=== PATIENT | male | born 1965 | race Caucasian/White ===

== ENCOUNTER → 2016-05-11 | Day surgery (SDC) | payer BC ==
[2016-05-04 14:36] VITALS: BMI 26.0
[~2016-05-11] VITALS: Ht 180.3 cm; Wt 86.4 kg
[~2016-05-11] MED LIST: ASPCH81X PO; BIOT1CAP8 PO; CHOL1000 PO; FLUT0.15 NAE; LIDOCAINE HCL 2% 2 ML VIAL (20MG/ML) ONE; LORA-741 PO; MIDAZOLAM HCL 1 MG/ML 2ML VIAL ONE; MULT-506 PO; ONDA4TAB46 PO; PARO10TA4 PO; PROPOFOL IV EMULSION 10 MG/ML 20 ML VIAL IV ONE; PRVHFAIN INH; SENN-61 PO; SODIUM CHLORIDE 0.9% 500ML 500 ML IV ONE; TEMA30CA4 PO; TRAM-10 PO
[2016-05-11 12:59] VITALS: TEMP 36.9
[2016-05-11 13:00] VITALS: Ht 180.3 cm; Wt 86.4 kg
--- NOTE | 2016-05-11 13:45 | GI REPORT ---
Procedure Date: 05/11/2016 12:58 PM Procedure: Colonoscopy Indications: Surveillance: Personal history of adenomatous polyps on last colonoscopy 5 years ago Medicines: Propofol per Anesthesia Complications: No immediate complications. Estimated blood loss: None. Estimated Blood Loss: Estimated blood loss: none. Procedure: Pre-Anesthesia Assessment: - Prior to the procedure, a History and Physical was performed, and patient medications, allergies and sensitivities were reviewed. The patient's tolerance of previous anesthesia was reviewed. - The risks and benefits of the procedure and the sedation options and risks were discussed with the patient. All questions were answered and informed consent was obtained. - Patient identification and proposed procedure were verified prior to the procedure by the physician and the nurse. The procedure was verified in the pre-procedure area in the procedure room. - Mental Status Examination: alert and oriented. Airway Examination: normal oropharyngeal airway and neck mobility. Respiratory Examination: clear to auscultation. CV Examination: normal. Abdominal Examination: bowel sounds present, abdomen soft and non-tender, no masses or organomegaly noted. - ASA Grade Assessment: II - A patient with mild systemic disease. After I obtained informed consent, the scope was passed under direct vision. Throughout the procedure, the patient's blood pressure, pulse, and oxygen saturations were monitored continuously. The scope was introduced through the anus and advanced to the terminal ileum. The colonoscopy was performed without difficulty. The patient tolerated the procedure well. The quality of the bowel preparation was good. Findings: The perianal and digital rectal examinations were normal. Pertinent negatives include normal sphincter tone and no palpable rectal lesions. The terminal ileum appeared normal. The entire examined colon appeared normal on direct and retroflexion views. Impression: - The examined portion of the ileum was normal. - The entire examined colon is normal on direct and retroflexion views. - No specimens collected. Recommendation: - Repeat colonoscopy in 5 years for surveillance. - Return to referring physician as previously scheduled. - Discharge patient to home. Isabel Reeves D.O. Isabel Reeves DO 05/11/2016 1:45:19 PM This report has been signed electronically. Note Initiated On: 05/11/2016 12:58 PM I attest to the content of the Intraoperative Record and orders documented therein, exceptions below
--- NOTE | 2016-05-11 13:48 | Discharge Instructions ---
Endoscopy Patient Instructions Date / Procedure(s) Performed May 11, 2016. Colonoscopy Allergy Information Coded Allergies: Penicillins (Verified Allergy, Unknown, A CHILD, TOLD NEVER TO TAKE, ) Discharge Date / Findings May 11, 2016. Medication Instructions Stopped Medication(s): VITAMINS LAST DOSE 05/07/16 ASPIRIN LAST DOSE 05/06/16 Restart Stopped Medication(s): OK to resume home medications as above Provider Instructions Activity Restrictions - No exercising or heavy lifting for 24 hours. - Do not drink alcohol the day of the procedure. - Do not drive a car or operate machinery until the day after the procedure. - Do not make any important decisions or sign important papers in 24 hours after the procedure. Following Day: - Return to full activity which may include returning to work/school. Diet Start your diet with liquids and light foods (jello, soup, juice, toast). Then eat your usual diet if not nauseated. Treatment For Common After Affects For mild abdominal pain, bloating, or excessive gas: - Rest - Eat lightly - Lie on right side Follow-Up Information Follow-up with DR BALDWIN as scheduled Anesthesia Information What You Should Know You have had a procedure that required some medicine to reduce anxiety and discomfort. This treatment is called moderate sedation. After receiving the treatment, you may be sleepy, but you will be able to breathe on your own. The effects of the treatment may last for several hours. Follow these instructions along with Activity/Diet recommendations noted above: * Do NOT do anything where dizziness or clumsiness would be dangerous. * Rest quietly at home today, then you can be up and about tomorrow. * Have a responsible person stay with you the rest of today. * You may have had an I.V. today. If so, you may take the dressing off later today. Recommendations Call your doctor if: * Trouble breathing * Continuous vomiting for more than 24 hours * Temperature above 101 degrees * Severe abdominal pain or bloating * Pain not relieved by pain medicine ordered * There is increased drainage or redness from any incision * A large amount of rectal bleeding greater than 2-3 tablespoons. (If you had a polyp/s removed or have hemorrhoids, a small amount of blood - from the rectum is to be expected.) * You have any unanswered questions or concerns. IN THE EVENT OF A SERIOUS EMERGENCY, GO TO THE NEAREST EMERGENCY ROOM Your discharge instructions were prepared by provider Isabel Reeves. Patient Instructions Signature Page Josh Geena Patient (or Guardian) Signature/Date: I have read and understand the instructions given to me by my caregivers. Caregiver/RN/Doctor Signature/Date: The above-named patient and/or guardian has received patient instructions on this date. + Original Patient Signature Page (only) stays with chart. Please make copy for patient.
--- NOTE | 2016-05-11 13:48 | Endo History and Physical ---
History & Physical Date of Service: May 11, 2016. Chief Complaint: HISTORY OF POLYPS Referring Physician: DR BALDWIN History of Present Illness history of polyps Past Surgical History Hx Cardiac Surgery: Yes (HEART CATH-NO STENTS) Hx Internal Defibrillator: No Hx Pacemaker: No Hx Abdominal Surgery: No Hx Post-Op Nausea and Vomiting: No Hx Cancer Surgery: No Hx Thoracic Surgery: No Hx Orthopedic: Yes (RT KNEE ARTHROSCOPY X 2) Hx Urinary Tract Surgery: No Family History Colon CA Social History Smoking Status: Former Smoker Hx Substance Use: No Hx Alcohol Use: Yes (VERY RARELY) Allergies Coded Allergies: Penicillins (Verified Allergy, Unknown, A CHILD, TOLD NEVER TO TAKE, ) Current Medications Reported Home Medications Medications Dose Route/Sig Max Daily Dose Days Date Category Flonase Allergy Relief (Fluticasone Propionate (Nasal)) 50 Mcg/Act Spr 1 [place] AJAY DIRECTED PRN 05/04/16 Reported Zofran (Ondansetron HCl) 4 Mg Tab 4 Mg PO PRN 05/04/16 Reported Ventolin Hfa (Albuterol) 60 Puffs/5400 Mcg Aers 2 Puff INH Q6H PRN 05/04/16 Reported Ultram (Tramadol HCl) 50 Mg Tab 100 Mg PO Q4H PRN 05/04/16 Reported Aspirin Chewable (Aspirin) 81 Mg Chew 81 Mg PO QAM 05/04/16 Reported Senokot (Senna) 8.6 Mg Tab 1 Tab PO QAM 05/04/16 Reported Vitamin D3 (Cholecalciferol) 1,000 Unit Tab 1 Tab PO QAM 90 05/04/16 Reported Biotin 1 Mg Cap 1 Cap PO QAM 05/04/16 Reported Multivitamin (Multivitamins) Tab 1 Tab PO QAM 01/15/13 Reported Paroxetine Hcl 10 Mg Tab 5 Mg PO QAM 01/15/13 Reported Restoril (Temazepam) 30 Mg Cap 30 Mg PO HS PRN 01/15/13 Reported Ativan (Lorazepam) 0.5 Mg Tab 0.5 Mg PO BID/PRN 01/15/13 Reported Vital Signs Weight (Kilograms): 86.36 Height (Feet): 5 Height (Inches): 11 Date Time Temp Pulse Resp B/P Pulse Ox O2 Delivery O2 Flow Rate FiO2 05/11/16 12:59 36.9 100 20 152/87 97 Room Air Physical Exam General Appearance: WD/WN, no apparent distress Assessment and Plan colonoscopy today
--- NOTE | 2016-05-11 14:00 | Anesthesiology Progress Note ---
Anesthesia Post Op Note Date & Time May 11, 2016 at 13:59 Vital Signs Pain Intensity: 0 Vital Signs Past 12 Hours Date Time Temp Pulse Resp B/P Pulse Ox O2 Delivery O2 Flow Rate FiO2 05/11/16 13:50 88 18 138/82 99 Room Air 05/11/16 13:40 89 18 111/69 98 Room Air 05/11/16 12:59 36.9 100 20 152/87 97 Room Air Notes Mental Status: alert / awake / arousable, participated in evaluation Pt Amnestic to Procedure: Yes Nausea / Vomiting: adequately controlled Pain: adequately controlled Airway Patency, RR, SpO2: stable & adequate BP & HR: stable & adequate Hydration State: stable & adequate Anesthetic Complications: no major complications apparent
[2016-05-11 14:03] VITALS: BP 139/93; PULSE 81; O2SAT 99
== END | disposition home or self-care (01) ==
LOC: C.GI 11:44
PROVIDERS: ATTEND Internal Medicine
DX: Z12.11 Encounter for screening for malignant neoplasm of colon (principal); Z86.010 Personal history of colon polyps; Z98.890 Other specified postprocedural states; Z88.0 Allergy status to penicillin; F17.210 Nicotine dependence, cigarettes, uncomplicated; Z79.82 Long term (current) use of aspirin

== ENCOUNTER → 2016-05-20 | Outpatient (CLI) | payer BC ==
[~2016-05-20] MED LIST changes: +GADAVIST IV PRN; -LIDOCAINE HCL 2% 2 ML VIAL (20MG/ML) ONE; -MIDAZOLAM HCL 1 MG/ML 2ML VIAL ONE; -PROPOFOL IV EMULSION 10 MG/ML 20 ML VIAL IV ONE; -SODIUM CHLORIDE 0.9% 500ML 500 ML IV ONE
--- NOTE | 2016-05-20 12:55 | DIAGNOSTIC IMAGING REPORT ---
Brain MRA HISTORY: Neuropathy NUMBNESS TINGLING OF R FACE, COLD HAND W/O PERIPHERAL VASC TECHNIQUE: 3-D [id number] MRA of the brain was performed without contrast. COMPARISON STUDY: None. FINDINGS: Visualized intracranial internal carotid arteries, distal vertebral arteries, and basilar artery are widely patent. There is no significant stenosis, occlusion, or aneurysm seen within the bilateral ACAs, MCAs, or proof machine operator. Minimal scattered plaque formation IMPRESSION: No significant stenosis, occlusion, or aneurysm within the [place]. Minimal scattered plaque formation Electronically signed by: Westley Saha M.D. 05/20/2016 12:53 PM Dictated Date/Time: 05/20/2016 12:51 PM
--- NOTE | 2016-05-20 13:32 | DIAGNOSTIC IMAGING REPORT ---
MRI OF THE BRAIN WITHOUT AND WITH IV CONTRAST CLINICAL HISTORY: Transient ischemic attack. Numbness and tingling of the right face.: This is a right hand. COMPARISON STUDY: Noncontrast head CT dated 12/07/2009 TECHNIQUE: MRI of the brain was performed from the vertex to the skull base utilizing various T1 and T2 weighted sequences. Following the IV administration of 8.8 mL of Gadavist contrast, additional enhanced images were obtained. FINDINGS: Sagittal T1, axial diffusion, proton density and T2 weighted axial, coronal FLAIR, and pre and post axial T1-weighted images were acquired. These were supplemented with post gadolinium coronal T1 weighted images. No intra or extra-axial mass lesions are visualized. Axial diffusion-weighted images reveal no evidence of acute or subacute infarction. There is no evidence of ventricular dilatation. Proton density T2-weighted and FLAIR images reveal scattered foci of increased T2 signal within the white matter, likely on a small vessel basis. There are no abnormal flow voids. There is no evidence of pathologic enhancement. IMPRESSION: 1. No evidence of intracranial mass 2. No evidence of acute or subacute infarction 3. Scattered foci of increased T2 and FLAIR signal within the white matter, likely on a small vessel basis. Electronically signed by: Bruce Knight M.D. 05/20/2016 1:30 PM Dictated Date/Time: 05/20/2016 1:22 PM
== END | disposition home or self-care (01) ==
LOC: C.MRI 11:55
PROVIDERS: ATTEND Family Medicine
DX: R20.0 Anesthesia of skin (principal); R20.2 Paresthesia of skin

== ENCOUNTER 2017-05-21 05:47 | Emergency (ER) | payer BC ==
[~2017-05-21] VITALS: Ht 181.6 cm; Wt 86.0 kg
[~2017-05-21 05:47] MED LIST changes: -GADAVIST IV PRN
[2017-05-21 05:56] VITALS: TEMP 36.6; Ht 181.6 cm; Wt 86.0 kg
[2017-05-21] MEDS ORDERED: ONDANSETRON INJ 2 MG/ML 2 ML VIAL IV STA (06:08)
[2017-05-21] MEDS ORDERED: SODIUM CHLORIDE 0.9% 1000ML 300 ML IV STA (06:08)
[2017-05-21 06:16] LABS: BASO % 0.2 %; BASO ABS # 0.03 K/uL (0-0.2); EOS % 0.7 %; EOS ABS # 0.13 K/uL (0-0.5); HEMATOCRIT 48.6 % (42-52); HEMOGLOBIN 18.1 g/dL (14.0-18.0); IG# 0.25 K/uL (0.00-0.02); LYMPH ABS # 0.53 K/uL (1.2-3.4); MEAN CORPUSCULAR HEMOGLOBIN 33.5 pg (25-34); MEAN CORPUSCULAR HGB CONC 37.2 g/dl (32-36); MEAN PLATELET VOLUME 10.2 fL (7.4-10.4); MONO % 5.6 %; MONO ABS # 0.99 K/uL (0.11-0.59); NEUT % 89.1 %; NEUT ABS # 15.71 K/uL (1.4-6.5); PLATELET COUNT 196 K/uL (130-400); RED CELL DISTRIBUTION WIDTH CV 12.9 % (11.5-14.5); WHITE BLOOD COUNT 17.64 K/uL (4.8-10.8)
[2017-05-21] MEDS ORDERED: CHOL1CAP74 PO (06:30)
[2017-05-21] MEDS ORDERED: VITB2 PO (06:31)
[2017-05-21] MEDS ORDERED: RIBO100T9 PO (06:31)
[2017-05-21] MEDS ORDERED: MAGN1TAB19 PO (06:37)
[2017-05-21 06:38] LABS: ALBUMIN 4.5 gm/dl (3.4-5.0); CALCIUM 9.3 mg/dl (8.5-10.1); CREATININE 1.38 mg/dl (0.60-1.40); POTASSIUM 3.9 mmol/L (3.5-5.1); TOTAL PROTEIN 7.9 gm/dl (6.4-8.2)
[2017-05-21] MEDS ORDERED: MELA3TAB7 PO (06:38)
[2017-05-21] MEDS ORDERED: SUMA100T16 PO (06:39)
[2017-05-21] MEDS ORDERED: MGRIN PO (06:39)
[2017-05-21] MEDS ORDERED: HYDROmorphone INJ 0.5 MG/0.5 ML SYR IV STA (06:42)
[2017-05-21] MEDS ORDERED: PROMETHAZINE HCL INJ 25 MG in SODIUM CHLORIDE 0.9% 50ML 50 ML IV STA (06:42)
[2017-05-21] MEDS ORDERED: SODIUM CHLORIDE 0.9% 1000ML 1,000 ML IV STA (06:42)
[2017-05-21] MEDS ORDERED: OPTIRAY 320 IV PRN (07:00)
--- NOTE | 2017-05-21 07:59 | EMERGENCY ROOM VISIT NOTE ---
History Report prepared by Selvin: Alberta Stark Under the Supervision of: Dr. Ebenezer Valdez M.D. First contact with patient: 06:35 Chief Complaint: VOMITING Stated Complaint: VOMITING,DIARRHEA,DIZZY,FAST HEART RATE Nursing Triage Summary: Nausea, vomiting, achiness, dizziness and chills all night. Patient's stated that "these symptoms are new, definitely flu-like" Patient has been treated for cluster headaches for the last [address] Mccallum. History of Present Illness The patient is a 51 year old male who presents to the Emergency Room with complaints of persistent vomiting starting 013 today. The patient woke up from sleep with the symptoms. He has been vomiting every 15 minutes. He is having spasms in his mid upper abdomen near the end of his sternum. He rates his discomfort as a 9/10 at worst. He has tried taking Zofran to no significant relief. He reports chills, nausea, and constipation. His muscles are cramping all over his body. He is dizzy and lightheaded. He ate a pizza from [employer] with his yesterday. His is not having any symptoms. He is currently being treated for cluster headache. He is still having pain in his eye, but notes he is not here for his headache. He has a family history of gallbladder disease. Pt denies LOC, fevers, diaphoresis, visual changes, neck pain, chest pain, breathing difficulties, back pain, melena, hematochezia, urinary symptoms , numbness, weakness, lymphadenopathy, rash, or other complaints. Source of History: patient, spouse/significant other Onset: 129 today Symptom Intensity: 9/10 Quality: other (vomiting) Timing: other (persistent, every 15 minutes) Associated Symptoms: + chills, + nausea, + abdominal pain Note: Pt reports constipation, muscle cramps, dizziness, lightheadedness. Review of Systems See HPI for pertinent positives and negatives. A total of ten systems were reviewed and were otherwise negative. Past Medical & Surgical Medical Problems: (1) Cluster headache Family History Gallbladder disease Social History Smoking Status: Never Smoker Alcohol Use: occasionally Marital Status: Housing Status: lives with family Occupation Status: employed Current/Historical Medications Scheduled Aspirin (Aspirin Chewable), 81 MG PO QAM Cholecalciferol (Vitamin D3 Maximum Streng), 10,000 UNIT PO HS Lorazepam (Ativan), 0.5 MG PO BID/PRN Magnesium Oxide (Mg Supplement (Magnesium Oxide), 400 MG PO DAILY Melatonin-Pyridoxine (Melatonin), 9 MG PO HS Multivitamin (Multivitamin), 1 TAB PO QAM Paroxetine Hcl (Paroxetine Hcl), 5 MG PO QAM Riboflavin (Vitamin B-2), 25 MG PO DAILY Riboflavin (Vitamin B-2), 300 MG PO DAILY Senna (Senokot), 1 TAB PO QAM Scheduled PRN Dihydroergotamine Mesylate (Migranal), 1 DOSE PO UD PRN for Migraine Fluticasone Propionate (Nasal) (Flonase Allergy Relief), 1 SPRAY AJAY DIRECTED PRN for PRN Ondansetron Hcl (Zofran), 4 MG PO for Nausea Sumatriptan Succinate (Imitrex), 100 MG PO UD PRN for Migraine Temazepam (Restoril), 30 MG PO HS PRN for Sleep Tramadol (Ultram), 100 MG PO Q4H PRN for HEADACHE Allergies Coded Allergies: Bupropion (Verified Allergy, Unknown, N/V, 05/21/17) Naproxen (Verified Allergy, Unknown, ULCERS, 05/21/17) Penicillins (Verified Allergy, Unknown, A CHILD, TOLD NEVER TO TAKE, 05/21/17) Physical Exam Vital Signs Date Time Temp Pulse Resp B/P (MAP) Pulse Ox O2 Delivery O2 Flow Rate FiO2 05/21/17 12:30 91 18 132/89 99 Room Air 05/21/17 09:56 95 16 116/81 98 Room Air 05/21/17 07:53 114 20 157/90 93 Room Air 05/21/17 05:56 36.6 128 22 128/85 98 Room Air Physical Exam GENERAL: Awake, alert, uncomfortable appearing, mild distress HEAD: Normocephalic, atraumatic. No edema. EYES: Normal conjunctiva. Sclera non-icteric. OROPHARYNX: Lips, tongue, and mucosa unremarkable. No erythema or exudate. NECK: Supple. No nuchal rigidity. FROM. No adenopathy. RESPIRATORY: CTA bilaterally. No wheezes rales or rhonchi. Normal respiratory effort. CARDIAC: Borderline tachycardic rate. Normal rhythm. No murmurs. No rubs. GI: Soft, non distended. Upper abdominal tenderness to palpation. No rebound or guarding. MUSCULOSKELETAL: Atraumatic. No edema. NEURO: Normal sensorium. Speech normal. SKIN: No rash or jaundice noted Medical Decision & Procedures ER Provider Diagnostic Interpretation: Radiology results as stated below per my review and radiologist interpretation: CT ABD/PELVIS IV CONTRAST ONLY CLINICAL HISTORY: Upper abdominal pain, vomiting, diarrhea, elevated white count. COMPARISON STUDY: None. TECHNIQUE: Following the IV administration of 91 mL of Optiray-320, CT scan of the abdomen and pelvis was performed from the lung bases to the proximal femurs. Images are reviewed in the axial, sagittal, and coronal planes. IV contrast was administered without complication. A dose lowering technique was utilized adhering to the principles of ALARA. CT DOSE: 478.51 mGy.cm FINDINGS: Lower chest: There are mild dependent atelectatic changes present. Liver: The contrast-enhanced liver is normal in size, contour, and attenuation. There is no intrahepatic biliary ductal dilatation. The hepatic veins and portal veins are patent. Gallbladder: Mildly distended. No calculi are visualized. Spleen: Normal in size and attenuation. Pancreas: Unremarkable. Adrenal glands: Unremarkable. Kidneys: There is symmetric renal cortical enhancement. The kidneys are normal in size without hydronephrosis. Bowel: The appendix appears normal. There is no acute diverticulitis. There are multiple fluid-filled borderline dilated small bowel loops. The distal ileum is of normal caliber. There is a gradual mid to distal ileal transition, but no discrete mass is visualized. The findings are consistent with either an ileus or early/low-grade small bowel obstruction. There is a moderate amount stool present throughout the colon Peritoneum: There is no intraperitoneal free air or abdominal ascites. Vasculature: The abdominal aorta is normal in course and caliber. Adenopathy: None. Pelvic viscera: The bladder, and pelvic viscera are unremarkable. Skeletal structures: No destructive osseous lesions are seen. IMPRESSION: 1. Mildly prominent fluid-filled small bowel loops with normal caliber distal ileum. While likely representing an ileus/enteritis, an early/partial small bowel obstruction cannot be excluded. Clinical follow-up is advocated 2. No free air. Electronically signed by: Bruce Knight M.D. 05/21/2017 8:05 AM Dictated Date/Time: 05/21/2017 7:58 AM Laboratory Results 05/21/17 06:00 Red Blood Count 5.40, Mean Corpuscular Volume 90.0, Mean Corpuscular Hemoglobin 33.5, Mean Corpuscular Hemoglobin Concent 37.2, Mean Platelet Volume 10.2, Neutrophils (%) (Auto) 89.1, Lymphocytes (%) (Auto) 3.0, Monocytes (%) (Auto) 5.6, Eosinophils (%) (Auto) 0.7, Basophils (%) (Auto) 0.2, Neutrophils # (Auto) 15.71, Lymphocytes # (Auto) 0.53, Monocytes # (Auto) 0.99, Eosinophils # (Auto) 0.13, Basophils # (Auto) 0.03 05/21/17 06:00 Test 05/21/17 06:00 05/21/17 12:00 White Blood Count 17.64 K/uL (4.8-10.8) Red Blood Count 5.40 M/uL (4.7-6.1) Hemoglobin 18.1 g/dL (14.0-18.0) Hematocrit 48.6 % (42-52) Mean Corpuscular Volume 90.0 fL (80-100) Mean Corpuscular Hemoglobin 33.5 pg (25-34) Mean Corpuscular Hemoglobin Concent 37.2 g/dl (32-36) Platelet Count 196 K/uL (130-400) Mean Platelet Volume 10.2 fL (7.4-10.4) Neutrophils (%) (Auto) 89.1 % Lymphocytes (%) (Auto) 3.0 % Monocytes (%) (Auto) 5.6 % Eosinophils (%) (Auto) 0.7 % Basophils (%) (Auto) 0.2 % Neutrophils # (Auto) 15.71 K/uL (1.4-6.5) Lymphocytes # (Auto) 0.53 K/uL (1.2-3.4) Monocytes # (Auto) 0.99 K/uL (0.11-0.59) Eosinophils # (Auto) 0.13 K/uL (0-0.5) Basophils # (Auto) 0.03 K/uL (0-0.2) RDW Standard Deviation 42.0 fL (36.4-46.3) RDW Coefficient of Variation 12.9 % (11.5-14.5) Immature Granulocyte % (Auto) 1.4 % Immature Granulocyte # (Auto) 0.25 K/uL (0.00-0.02) Anion Gap 5.0 mmol/L (3-11) Est Creatinine Clear Calc Drug Dose 66.9 ml/min Estimated GFR () 67.2 Estimated GFR (Non- 58.0 BUN/Creatinine Ratio 21.6 (10-20) Calcium Level 9.3 mg/dl (8.5-10.1) Total Bilirubin 1.2 mg/dl (0.2-1) Aspartate Amino Transf (AST/SGOT) 23 U/L (15-37) Alanine Aminotransferase (ALT/SGPT) 47 U/L (12-78) Alkaline Phosphatase 87 U/L (45-117) Troponin I < 0.015 ng/ml (0-0.045) Total Protein 7.9 gm/dl (6.4-8.2) Albumin 4.5 gm/dl (3.4-5.0) Globulin 3.4 gm/dl (2.5-4.0) Albumin/Globulin Ratio 1.3 (0.9-2) Lipase 255 U/L (73-393) Chemistry Specimen Hemolysis Urine Color DK YELLOW Urine Appearance CLEAR (CLEAR) Urine pH >= 9.0 (4.5-7.5) Urine Specific [place] > 1.045 (1.000-1.030) Urine Protein NEG (NEG) Urine Glucose (UA) NEG (NEG) Urine Ketones NEG (NEG) Urine Occult Blood NEG (NEG) Urine Nitrite NEG (NEG) Urine Bilirubin NEG (NEG) Urine Urobilinogen NEG (NEG) Urine Leukocyte Esterase NEG (NEG) Laboratory results reviewed by me Medications Administered Medications (Trade) Dose Ordered Sig/Thalia Route Start Time Stop Time Status Last Admin Dose Admin Sodium Chloride 300 ml @ 999 mls/hr Q19M STAT IV 05/21/17 06:08 05/21/17 06:26 DC 05/21/17 06:14 999 MLS/HR Ondansetron HCl (Zofran Inj) 4 mg NOW STAT IV 05/21/17 06:08 05/21/17 06:10 DC 05/21/17 06:14 4 MG Promethazine HCl 25 mg/Sodium Chloride 51 ml @ 204 mls/hr NOW STAT IV 05/21/17 06:42 05/21/17 06:56 DC 05/21/17 07:37 204 MLS/HR Sodium Chloride 1,000 ml @ 999 mls/hr Q1H1M STAT IV 05/21/17 06:42 05/21/17 07:42 DC 05/21/17 07:37 999 MLS/HR Hydromorphone HCl (Dilaudid Inj) 0.5 mg NOW STAT IV 05/21/17 06:42 05/21/17 06:45 DC 05/21/17 07:37 0.5 MG Metoclopramide HCl (Reglan Inj) 10 mg NOW STAT IV 05/21/17 09:46 05/21/17 09:47 DC 05/21/17 09:54 10 MG Diphenhydramine HCl (Benadryl Inj) 12.5 mg NOW STAT IV 05/21/17 09:46 05/21/17 09:47 DC 05/21/17 09:54 12.5 MG Promethazine HCl (Phenergan 25MG Home Pack) 1 homepack STK-MED ONCE PO 05/21/17 12:38 05/21/17 12:39 DC 05/21/17 12:46 1 HOMEPACK ECG Per My Interpretation Indication: tachycardia Rate (beats per minute): 102 Rhythm: sinus tachycardia Findings: nonspecific-ST abn, no acute ischemic change, no ectopy ED Course 0608: Zofran Inj 4 mg IV, Sodium Chloride 300 ml @ 999 mls/hr IV. 0641: The patient was evaluated in room A11B. A complete history and physical exam was performed. 0642: Dilaudid Inj 0.5 mg IV, Sodium Chloride 1000 ml @ 999 mls/hr IV, Promethazine HCl 25 mg/Sodium Chloride 51 ml @ 204 mls/hr IV. 0739: I reevaluated the patient. 0808: I reevaluated the patient. 0826: I reevaluated the patient. He is resting comfortably. I updated him on the results. 0946: Benadryl Inj 12.5 mg IV, Reglan Inj 10 mg IV. 1020: I reevaluated the patient. 1230: I reevaluated the patient. He is feeling better, tolerated PO. I discussed the results and treatment plan with him. He verbalized understanding and agreement. He is comfortable with close outpatient follow up. The patient is ready for discharge. 1238: Promethazine HCl 1 homepack PO. Medical Decision Prior records/ancillary studies reviewed. Triage Nursing notes reviewed and agree them. Additional history obtained from the family. The patient's history was concerning for nausea, vomiting, diarrhea, and abdominal pain. Differential diagnosis: Etiologies such as gastroenteritis, food borne illness, infections, appendicitis , diverticulitis, inflammatory bowel disease, GI bleed, biliary pathology, as well as others were entertained. Physical examination findings: As above. No peritoneal findings. Upper abdominal tenderness. ER treatment provided: IV hydration 2 L NSS. IV Zofran On reassessment the patient was still feeling nauseated. He had pain. IV Phenergan IV Dilaudid On reassessment the patient was noting some recurrent nausea IV Reglan IV Benadryl On reassessment the patient felt definitely better. Patient was tolerating p.o. intake. No recurrent issues. Diagnostics interpretation by me: ECG: Normal without ischemia The labs revealed a moderate leukocytosis on CBC. Chemistry panel was unremarkable. Troponin negative. Imaging studies: CT scan as above. Consistent with enteritis/ileus. The patient presented and was quite uncomfortable. He had abrupt onset of vomiting throughout the night. He has never had any surgery on his abdomen. He underwent CT imaging which showed an enteritis/ileus. Early small bowel obstruction was entertained although the patient has no significant risk factors. He was hydrated. He was given several rounds of antiemetic medications. He was treated with pain medication as well. He felt significantly better after prolonged observation in the emergency department and his symptoms improved. He was tolerating oral fluids. I discussed possible treatment options including staying in the hospital and the patient feels well and would like to go home. If he worsens in any way her symptoms recur he will come back to the emergency department for reevaluation immediately. I discussed continuing his outpatient Zofran and also give the patient a Phenergan home pack. I gave my usual and customary discussion regarding this issue. By the evaluation outlined above other emergent etiologies such as those listed in the differential, as well as others, were deemed relatively unlikely. The patient was educated about the findings as listed above. All questions were answered and the patient was pleased with the treatment. Return instructions were outlined and the patient was discharged in stable condition. The patient was referred to his PCP for follow-up for a recheck of the current condition. Medication Reconcilliation Current Medication List: was personally reviewed by me Blood Pressure Screening Patient's blood pressure: Elevated blood pressure Blood pressure disposition: Referred to PCP Impression Primary Impression: Vomiting Additional Impressions: Upper abdominal pain Enteritis Scribe Attestation The scribe's documentation has been prepared under my direction and personally reviewed by me in its entirety. I confirm that the note above accurately reflects all work, treatment, procedures, and medical decision making performed by me. Departure Information Dispostion Home / Self-Care Referrals Ebenezer Storey III, M.D. (PCP) Forms HOME CARE DOCUMENTATION FORM, IMPORTANT VISIT INFORMATION Patient Instructions My [facility] Additional Instructions VOMITING INSTRUCTIONS: DO NOT drive, drink alcohol, operate machinery, or perform dangerous activities today. You were given medications in the ER that can affect your ability to safely function or operate a vehicle. Phenergan(promethazine) tablets 25mg: Take one every six hours as needed for nausea. Avoid alcohol, operating machinery or dangerous equipment, working on ladders or roofs, DRIVING, or situations where being under the influence may be dangerous. Zofran(odansetron) tablets 4mg: Take one and allow it to dissolve in your mouth every four to six hours as needed for nausea or vomiting. Acetaminophen(Tylenol) may be used for fever or pain. Use 1000mg every six hours as needed. Avoid using more than 4000mg in a 24 hour period. Rest and drink plenty of fluids as tolerated. Slow sips of water or sports drinks are recommended instead of large amounts all at once. Continue current medications. Once your stomach is settled start with a clear liquid diet (jello, soup broth, etc.) and then advance as tolerated. You should avoid full, heavy meals for about 24 hrs from the time your symptoms resolved. Return to the ER for persistent vomiting, fevers, abdominal pain, chest pains, difficulty breathing, black or bloody stools, worsening of your condition, or as needed. Follow up with your primary physician in 1-2 days for a recheck of your current condition Problem Qualifiers
--- NOTE | 2017-05-21 08:06 | DIAGNOSTIC IMAGING REPORT ---
CT ABD/PELVIS IV CONTRAST ONLY CLINICAL HISTORY: Upper abdominal pain, vomiting, diarrhea, elevated white count. COMPARISON STUDY: None. TECHNIQUE: Following the IV administration of 91 mL of Optiray-320, CT scan of the abdomen and pelvis was performed from the lung bases to the proximal femurs. Images are reviewed in the axial, sagittal, and coronal planes. IV contrast was administered without complication. A dose lowering technique was utilized adhering to the principles of ALARA. CT DOSE: 478.51 mGy.cm FINDINGS: Lower chest: There are mild dependent atelectatic changes present. Liver: The contrast-enhanced liver is normal in size, contour, and attenuation. There is no intrahepatic biliary ductal dilatation. The hepatic veins and portal veins are patent. Gallbladder: Mildly distended. No calculi are visualized. Spleen: Normal in size and attenuation. Pancreas: Unremarkable. Adrenal glands: Unremarkable. Kidneys: There is symmetric renal cortical enhancement. The kidneys are normal in size without hydronephrosis. Bowel: The appendix appears normal. There is no acute diverticulitis. There are multiple fluid-filled borderline dilated small bowel loops. The distal ileum is of normal caliber. There is a gradual mid to distal ileal transition, but no discrete mass is visualized. The findings are consistent with either an ileus or early/low-grade small bowel obstruction. There is a moderate amount stool present throughout the colon Peritoneum: There is no intraperitoneal free air or abdominal ascites. Vasculature: The abdominal aorta is normal in course and caliber. Adenopathy: None. Pelvic viscera: The bladder, and pelvic viscera are unremarkable. Skeletal structures: No destructive osseous lesions are seen. IMPRESSION: 1. Mildly prominent fluid-filled small bowel loops with normal caliber distal ileum. While likely representing an ileus/enteritis, an early/partial small bowel obstruction cannot be excluded. Clinical follow-up is advocated 2. No free air. Electronically signed by: Bruce Knight M.D. 05/21/2017 8:05 AM Dictated Date/Time: 05/21/2017 7:58 AM
[2017-05-21] MEDS ORDERED: METOCLOPRAMIDE HCL INJ 5 MG/ML 2 ML VIAL IV STA (09:46)
[2017-05-21] MEDS ORDERED: DiphenhydrAMINE HCL 50 MG/ML VIAL IV STA (09:46)
[2017-05-21 12:30] VITALS: BP 132/89; PULSE 91; O2SAT 99
[2017-05-21] MEDS ORDERED: PHENERGAN 25MG HOMEPACK PO ONE (12:38)
== END 2017-05-21 12:54 | disposition home or self-care (01) ==
LOC: C.EDB 05:49 → C.EDA 12:54
DX: R11.10 Vomiting, unspecified (principal); R10.10 Upper abdominal pain, unspecified; K52.9 Noninfective gastroenteritis and colitis, unspecified; G44.009 Cluster headache syndrome, unspecified, not intractable; Z83.79 Family history of other diseases of the digestive system; Z79.82 Long term (current) use of aspirin; Z79.899 Other long term (current) drug therapy; Z88.0 Allergy status to penicillin; Z88.8 Allergy status to other drugs, medicaments and biological substances

== ENCOUNTER → 2017-09-25 | Outpatient (CLI) | payer BC ==
[~2017-09-25] MED LIST changes: -BIOT1CAP8 PO; -CHOL1000 PO; +CHOL1CAP74 PO; +MAGN1TAB19 PO; +MELA3TAB7 PO; +MGRIN PO; -PRVHFAIN INH; +RIBO100T9 PO; +SUMA100T16 PO; +VITB2 PO
== END | disposition home or self-care (01) ==
LOC: C.CPL 15:18
PROVIDERS: ATTEND Orthopaedic Surgery
DX: M25.511 Pain in right shoulder (principal)